=== PATIENT | female | born 1980 | race Caucasian/White ===

== ENCOUNTER 2025-02-15 16:54 | Emergency (ER) | payer OTHER, SELFPAY ==
[2025-02-15 17:05] VITALS: BP 142/84
[2025-02-15 17:22] LABS: % Basophils 0.7 % (0-2); % Eosinophils 1.1 % (0-6); % Immature Granulocytes 0.3 % (0-0.5); % Lymphocytes 12.8 % (20.5-51.1); % Monocytes 5.5 % (1.7-9.3); % Neutrophils 79.6 % (42.2-75.2); Absolute Basophils 0.1 10^3/uL (0-0.2); Absolute Eosinophils 0.1 10^3/uL (0-0.7); Absolute Lymphocytes 1.3 10^3/uL (1.2-3.4); Absolute Monocytes 0.6 10^3/uL (0.1-0.6); Hematocrit 43.4 % (37.0-47.0); Hemoglobin 14.6 g/dL (12.0-16.0); Mean Corp Hgb Conc. 33.6 g/dL (33.0-37.0); Mean Corpuscular Volume 86.3 fL (81.0-99.0); Nucleated Red Blood Cells % 0 %; Platelet Count 261 10^3/uL (130-400); Red Blood Cell Count 5.03 10^6/uL (4.20-5.40); Red Cell Dist. Width 13.1 % (11.5-14.5); White Blood Cell Count 10.1 10^3/uL (4.8-10.8)
[2025-02-15 17:35] LABS: HCG, Serum Qualitative Screen Negative
[2025-02-15 17:38] LABS: ALT (SGPT) 18 U/L (0-35); AST (SGOT) 23 U/L (14-36); Alkaline Phosphatase 72 U/L (38-126); Blood Urea Nitrogen 7 mg/dl (7-17); Calcium 9.4 mg/dl (8.4-10.2); Carbon Dioxide 24 mmol/L (22-30); Chloride 109 mmol/L (98-107); Glucose 96 mg/dl (70-99); Lipase 165 U/L (23-300); Potassium 3.6 mmol/L (3.5-5.1); Sodium 141 mmol/L (135-145); Total Bilirubin 1.3 mg/dl (0.2-1.3); Total Protein 8.2 g/dl (6.3-8.2); eGFR > 60.00
--- NOTE | 2025-02-15 18:24 | EDRN ---
Pito Shaw [employer] in room w/ pt at this time.
[2025-02-15 18:41] VITALS: BMI 22.3
--- NOTE | 2025-02-15 18:43 | EDRN ---
Pt arrives for RUQ abd pain intermittent for past 2 weeks (dull pain now non shooting 2/10) and also intermittent. Pt states BMs yellow and softer than usually at times other times normal color and consistency. No urinary symptoms.
[2025-02-15 18:47] VITALS: BP 111/48
--- NOTE | 2025-02-15 23:34 | ED.GENMED ---
History of Present Illness
General
Chief Complaint: Abdominal Pain
Source: patient
Exam Limitations: none
Time Seen by Provider: 02/15/25 18:19
Nursing documentation reviewed up to this point in time: agreed with
History of Present Illness
History of Present Illness:
Patient to ED with complaint of upper abdominal pain, bloating/gas, light/yellow stool. Symptoms started approx 1.5weeks ago. Deneis fever/chills,recent illness. No n/v/d. To ED accompainied by family.
Past History
Past History
ED Past Medical History: Cancer (breast)
Review of Systems
Review of Systems
Allergies reviewed?: Yes
All Other Systems: ROS reviewed and negative except as documented in HPI and ROS
Constitutional: Reports no symptoms
EENT: Reports no symptoms
Respiratory: Reports no symptoms
Cardiac: Reports no symptoms
ABD/GI: Reports other (upper abdominal discomfort, bloating, yellow stools)
: Reports no symptoms
Musculoskeletal: Reports no symptoms
Skin: Reports no symptoms
Neurological: Reports no symptoms
Psychiatric: Reports no symptoms
Phy Exam
General Physical Exam
General Presentation: well appearing and no apparent distress
General age: appears stated age
General Skin: warm and dry
General Habitus: normal
General Mental: alert
Cardiovascular Exam
Cardiovascular Exam: regular rate/rhythm and no edema
Gastrointestinal Exam
Gastrointestinal Exam: normal bowel sounds, non tender, soft, no organomegaly, no pulsatile mass and non distended
Musculoskeletal Exam
Musculoskeletal Exam: full ROM
Skin Exam
Skin Exam: normal color, warm/dry and no rash
Psychiatric Exam
Psychiatric Exam: normal mood/affect
Course
Orders/Labs/Results
Orders:
Orders
02/15/25 17:09
Test Result ONCE
02/15/25 17:12
Complete Blood Count/With Diff Urgent
Comprehensive Metabolic Panel Urgent
HCG, Serum Qualitative Screen Urgent
Lipase Urgent
02/15/25 18:46
US Abdomen Complete/Upper Urgent
Comment:
Reason For Exam: upper abd pain
Abnormal Lab Results
02/15/25
17:12
MPV 11.0 H fL
(7.4-10.4)
Absolute Neuts (auto) 8.0 H 10^3/uL
(1.4-6.5)
Neutrophils % 79.6 H %
(42.2-75.2)
Lymphocytes % 12.8 L %
(20.5-51.1)
Chloride 109 H mmol/L
(98-107)
02/15/25 17:12
02/15/25 17:12
Vital Signs
Initial and Last Documented VS:
Initial Vital Signs
Temp Pulse Resp BP Pulse Ox
98.6 F 118 18 142/84 99
02/15/25 17:05 02/15/25 17:05 02/15/25 17:05 02/15/25 17:05 02/15/25 17:05
Last Documented Vital Signs
Temp Pulse Resp BP Pulse Ox
98.6 F 92 16 111/48 99
02/15/25 17:05 02/15/25 18:47 02/15/25 18:47 02/15/25 18:47 02/15/25 18:47
*Radiology
Radiology exam reviewed: radiology read reviewed
*Pulse Oximetry
Patient hypoxic: no
*Critical Care Note
Total Time (30-74mins, 75-104mins- exclusive of procedures): Not Applicable
Update Note
Update Note:
Patient to ED wtih complaint of upper abd. pain, bloating/gas, light/yellow stools. No abdominal pain, n/v/d. Labs US report reviewed with her. No concerning findings. Abdominal exam was normal. Will discharge home, close follow up wtih PCP.
Given number for GI follow up and she will call in AM to schedule follow up appt. Given instructions on s/s to return to ED and she is agreeable to plan.
ED Attending Note
-
Portions of this chart may have been created with voice recognition software.� Occasional wrong word or��sound alike� substitutions may have occurred due to the inherent limitations of voice recognition software.
Discharge Plan
Departure
Patient Disposition: Home (Routine Discharge)
Date of Disposition: 02/15/25
Time of Disposition: 20:04
Patient with high blood pressure during this ER visit?: No
Condition: Good
Covid-19: Not Applicable
Discharge Problem:
Abdominal bloating, Light stools
Instructions: Abdominal Pain
Referrals:
Elizabeth Gallego, DO [Family Provider] - Follow up in 2-3 days
Activity Restrictions/Additional Instructions:
Return to the emergency department immediately for any changes in/worsening of your symptoms
Interventions
Interventions:
*Risk Screen - Suicide Last Done: 02/15/25 17:05
*General Assessment Last Done: 02/15/25 18:42
*Neglect/Abuse Screening Last Done: 02/15/25 18:42
*ED- Fall Risk Assessment Last Done: 02/15/25 18:42
*ED COVID-19 Vaccine History Last Done: 02/15/25 18:42
*Nursing Disposition Last Done: 02/15/25 20:32
PT-Djytek-Ivcsnpzizb Assessment Last Done: 02/15/25 18:45
Discharge Date and Time
Discharge Date/Time: 02/15/25 20:32
Print Language: PANAMANIAN
== END 2025-02-15 20:32 | disposition home or self-care (01) ==
LOC: EMR 16:54
PROVIDERS: EMERGENCY PHYSICIAN Emergency Medicine; FAMILY PHYSICIAN Internal Medicine
DX: R14.0 Abdominal distension (gaseous) (principal); R19.5 Other fecal abnormalities
CPT/HCPCS: 99284; 76700; 80053; 83690; 84703; 85025